=== PATIENT | male | born 1970 | race Caucasian/White ===

== ENCOUNTER 2016-11-27 05:17 | Day surgery (SDC) ==
--- NOTE | 2016-11-20 16:49 | EKG Report ---
Test Performed on : 11/20/2016 4:30:48 PM Test Reason : PAT Blood Pressure : / mmHG Vent. Rate : 064 BPM Atrial Rate : 064 BPM P-R Int : 168 ms QRS Dur : 094 ms QT Int : 406 ms P-R-T Axes : 059 053 029 degrees QTc Int : 418 ms Normal sinus rhythm. Normal ECG No previous ECGs available Confirmed by To Ayala MD ([id number]) on 11/22/2016 12:34:42 PM
[2016-11-20 17:26] LABS: AGAP 15; ALKALINE PHOSPHATASE 67 U/L (32-122); BUN 16 mg/dL (8-22); CALCIUM 9.7 mg/dL (8.8-10.2); CHLORIDE 101 mmol/L (98-107); COSMO 288; GOT 14 U/L (10-34); GPT 21 U/L (10-44); POTASSIUM 4.6 mmol/L (3.5-5.1); SODIUM 144 mmol/L (136-145); TCO2 28 mmol/L (25-35); TOTAL BILIRUBIN 0.56 mg/dL (0.20-1.00); TOTAL PROTEIN 7.2 g/dL (6.3-8.3)
[2016-11-27] MEDS ORDERED: MEFOXIN 2 GM/NS 50 ML ONE (06:03)
[2016-11-27] MEDS ORDERED: LR 1,000 ML ONE ×2 (06:03→06:22)
[2016-11-27] MEDS ORDERED: MARCAINE 0.25% PF/EPI 1:200,000 ONE (06:22)
[2016-11-27] MEDS ORDERED: SODIUM CHLORIDE 0.9% ONE (06:22)
[2016-11-27] MEDS ORDERED: DIPRIVAN 1% ONE (07:51)
[2016-11-27] MEDS ORDERED: FENTANYL ONE (07:52)
[2016-11-27] MEDS ORDERED: VERSED ONE (07:52)
--- NOTE | 2016-11-27 08:21 | Diag Imaging Result Document ---
PROCEDURE NAME: OPERATIVE CHOLANGIOGRAM - 11/27/2016 INTRAOPERATIVE CHOLANGIOGRAM, ONE IMAGE: FINDINGS: The distal common bile duct is not included on the image. There is no apparent filling defect in the included portions of the common hepatic and common bile ducts. There is some contrast in the duodenum. IMPRESSION: Incomplete examination. No definite evidence of retained stones.
[2016-11-27] MEDS ORDERED: NORCO-10 ONE (08:32)
[2016-11-27] MEDS ORDERED: ROBINUL ONE (08:32)
[2016-11-27] MEDS ORDERED: ZOFRAN ONE (08:32)
[2016-11-27] MEDS ORDERED: DECADRON ONE (08:32)
[2016-11-27] MEDS ORDERED: NEOSTIGMINE ONE (08:32)
[2016-11-27] MEDS ORDERED: QUELICIN (DOSE) ONE (08:32)
[2016-11-27] MEDS ORDERED: XYLOCAINE-MPF 2% ONE (08:32)
[2016-11-27] MEDS ORDERED: TORADOL ONE (08:32)
[2016-11-27] MEDS ORDERED: ZEMURON ONE (08:32)
[2016-11-27 09:14] VITALS: BP 147/80
--- NOTE | 2016-11-27 11:32 | OPERATIVE NOTE ---
PROCEDURE DATE: 11/27/2016 PREOPERATIVE DIAGNOSES: 1. Chronic cholecystitis with right upper quadrant pain. 2. Dilated common bile duct. POSTOPERATIVE DIAGNOSES: 1. Chronic cholecystitis with right upper quadrant pain. 2. Dilated common bile duct. PROCEDURE: Laparoscopic cholecystectomy with cholangiogram. SURGEON: Lexa Velazco MD SIGN MAINTENANCE: None. ANESTHESIA: General endotracheal. INTRAOPERATIVE FINDINGS: On cholangiogram, the common bile duct was mildly dilated. There were no filling defects. We saw the contrast enter into the duodenum. We saw what also appeared to be a right aberrant hepatic duct takeoff, but we did see both the left and right hepatic ducts. COMPLICATIONS: None at time of dictation. ESTIMATED BLOOD LOSS: 10 mL. SPECIMENS REMOVED: Gallbladder and its contents. BRIEF HISTORY: The patient is a 46-year-old male who presented my office with chronic right upper quadrant pain. He had a CT scan that showed a dilated common bile duct. He also had a questionable pancreatic mass. He was evaluated by GI at [place], had an endoscopic ultrasound that showed no hepatic mass. He did have a mildly dilated common bile duct. It was felt that the patient's right upper quadrant pain could potentially be explained by his gallbladder. We discussed the risks, benefits, and alternatives of removing his gallbladder, all questions were answered. DESCRIPTION OF PROCEDURE: After informed consent was obtained, patient brought to the operating theatre, transferred to the operative table and placed in the supine position. General endotracheal anesthesia was then performed without complication. A formal time- out was then performed confirming patient, date, procedure. All were in agreement. At that time, attention was given to the patient's abdomen. The patient had a pre-existing umbilical hernia, we used this to facilitate our first trocar entry. We placed an incision right in the umbilicus and I entered into the abdomen initially with a 5 mm trocar, then transition to an 11 mm trocar, connected to insufflation. Pneumoperitoneum was achieved. Under direct visualization, placed 3 more trocars, all 5 mm; 1 in the subxiphoid, 2 in the right upper quadrant. Using these, the gallbladder was identified and retracted cephalad. We dissected out the cystic duct. Initially placed a clip on the gallbladder side, made a ductotomy, performed a cholangiogram with the details noted above. Given the aberrant right hepatic lobe duct takeoff, we were very meticulous in our dissection for the remainder of the gallbladder removal. We doubly clipped and ligated the cystic duct and cystic artery after achieving the critical view of safety. We did not see any aberrant extrahepatic ducts, therefore, suggesting this aberrant ductal takeoff was intrahepatic. We dissected the gallbladder off the gallbladder fossa using electrocautery and brought it out through the umbilical incision. We irrigated the abdomen copiously, injected local anesthetic in the hepatic region. Closed the umbilical incision with a 0 Vicryl figure-of- eight. Removed all trocars, disconnected insufflation. Pneumoperitoneum was released. The patient tolerated procedure well. All skin incisions closed with 4-0 Monocryl. He was transferred to recovery room in stable condition. [facility]
== END 2016-11-27 09:18 | disposition home or self-care (01) ==
LOC: OPS 05:17
PROVIDERS: ATTEND Surgery
DX: K81.1 Chronic cholecystitis (principal); K21.9 Gastro-esophageal reflux disease without esophagitis; I10 Essential (primary) hypertension
CPT/HCPCS: 74300; 80053; 88304; 93005; 93010; C1751; J0330; J0694; J1100; J1885; J2250; J2405; J3010; J7120; Q9966; J2710